=== PATIENT | female | born 1965 | race Caucasian/White ===

== ENCOUNTER 2018-05-13 12:57 | Inpatient (IN) | payer OTHER, SELFPAY ==
[2018-05-13] VITALS (16 sets, daily range): BP systolic 110–149; BP diastolic 62–98; PULSE 63–96; RESP 10–18; TEMP 36–36.8; O2SAT 16–100; BMI 21.8
--- NOTE | 2018-05-13 14:02 | ED.SKABFB ---
HPI - Skin/Abscess/Foreign Bdy General Chief complaint: Extremity Injury, Upper Stated complaint: INFECTED FINGER LT/INDEX FINGER Time Seen by Provider: 05/13/18 13:56 Related Data Allergies Allergy/AdvReac Type Severity Reaction Status Date / Time No Known Drug Allergies Allergy Verified 05/13/18 13:04 Exam Initial Vital Signs Initial Vital Signs: Vital Signs Temperature 98.0 F 05/13/18 13:04 Pulse Rate 84 05/13/18 13:04 Respiratory Rate 16 05/13/18 13:04 Blood Pressure 121/72 05/13/18 13:04 Pulse Oximetry 100 05/13/18 13:04 Course Vital Signs - 8 hr 05/13/18 13:04 Temperature 98.0 F Pulse Rate 84 Respiratory Rate 16 Blood Pressure 121/72 Pulse Oximetry 100
--- NOTE | 2018-05-13 14:12 | DI.RAD.S_ITS ---
PROCEDURE: XR FINGER LT MIN 2V INDICATIONS: 2weeks infection, osteo? distal phalanx, index TECHNIQUE: AP hand, 2 views of the left 2nd finger(s) acquired. COMPARISON: None. FINDINGS: Bones: No fractures or dislocations. There is mild irregularity of the cortex of the distal tuft of the 2nd digit. Soft tissues: No suspicious soft tissue calcifications. IMPRESSION: Mild cortical regularity involving the 2nd digit, which could represent osteomyelitis. Bone scan or MRI could be performed for confirmation, if clinically indicated. Dictated by: Blossom Alvarado M.D. on 05/13/2018 at 14:27 Approved by: Blossom Alvarado M.D. on 05/13/2018 at 14:28
--- NOTE | 2018-05-13 14:14 | ED.UPPEXIN ---
HPI - Extremity Injury (Upper) General Chief Complaint: Extremity Injury, Upper Stated Complaint: INFECTED FINGER LT/INDEX FINGER Time Seen by Provider: 05/13/18 13:56 Source: patient Mode of arrival: ambulatory Limitations: no limitations History of Present Illness HPI narrative: 52-year-old female nonsmoker with the rather benign medical history presents at the request of her primary care provider for evaluation of an infected left index finger. The patient has had a rather complex recent history which started with a laceration on April 26. Her wound was promptly dressed by some friends at a dinner alliance party and wrapped tightly. The patient developed some discomfort in her finger which she assumed was just a consequence of the laceration but it went on to become quite painful, insensate and black. Patient was initially seen by her primary care provider but then referred to the emergency department at [facility]. The patient was referred to plastic surgeon in [place] who has seen the patient a few times and most recently debridement, evaluated the finger yesterday. The patient complains of no sensation to the tip of her finger ongoing drainage of foul-smelling purulent fluid. She denies any systemic findings such as fever, chills nor nausea or vomiting MD complaint: injury to: left Onset (ago): day(s) Other Extremity Injury: Left: fingers Handedness: right Place: home Related Data Home Medications Medication Instructions Recorded Confirmed metronidazole 500 mg PO TID 05/13/18 05/13/18 sulfamethoxazole-trimethoprim 1 tab PO Q12H 05/13/18 05/13/18 Allergies Allergy/AdvReac Type Severity Reaction Status Date / Time No Known Drug Allergies Allergy Verified 05/13/18 13:04 Review of Systems Review of Systems ROS Unobtainable: All systems reviewed & are unremarkable except as noted in HPI and below Constitutional Denies chills, Denies fever(s), Denies lethargy and Denies weakness Eyes Denies change in vision, Denies eye discharge, Denies irritation and Denies loss of vision ENT Ears, Nose, Mouth, and Throat: Denies change in voice, Denies neck pain and Denies sore throat Cardiovascular Denies chest pain, Denies irregular heart rhythm, Denies lightheadedness, Denies palpitations, Denies dyspnea, Denies dyspnea on exertion and Denies orthopnea Respiratory Denies cough, Denies dyspnea, Denies dyspnea on exertion and Denies wheezing Gastrointestinal Gastrointestinal: Denies abdominal pain, Denies change in bowel habits, Denies diarrhea, Denies nausea and Denies vomiting Genitourinary Denies hematuria, Denies flank pain, Denies urinary incontinence and Denies urinary urgency Musculoskeletal Reports joint swelling, Reports limited range of motion and Denies neck pain Integumentary/Breasts Denies pruritus, Denies erythema, Denies rash, Reports skin pain, Reports skin swelling, Reports skin ulcer and Denies wounds Neurologic Denies confusion, Denies loss of vision and Denies weakness Psychiatric Denies anxiety, Denies confusion, Denies depression, Denies homicidal ideation and Denies suicidal ideation Endocrine Denies palpitations Hematologic/Lymphatic Denies easy bruising Allergic/Immunologic Denies wheezing [facility] Social History household members: spouse and children Exam Narrative Exam Narrative: GEN: AOx3 and in mild distress EYES: Pupils are equal, round, and reactive to light and accommodation. Extraoccular muscles are intact bilaterally. There is no subconjunctival hemorrhage or exudate. CHEST: Lungs are clear to auscultation bilaterally and free of wheezes, rales, or rhonchi. Heart rate is regular rhythm, there are no murmurs, clicks, rubs, or gallops. There is no chest wall tenderness. ABD: Abdomen is soft and nontender. There is no guarding or rebound. Bowel sounds are normal in all 4 quadrants. There is no mass or organomegaly. EXT: Left index finger with significant physical exam findings distal to the DIP. The skin is necrotic with some erythema and edema. There is ulceration and sloughing of the skin with some drainage. There is no active bleeding in it is insensate with little to no cap refill. There is minimal swelling of the remainder of the finger and no tenderness along flexor tendon SKIN: Warm, pink, and dry. No erythema or rash Initial Vital Signs Initial Vital Signs: Vital Signs Temperature 98.0 F 05/13/18 13:04 Pulse Rate 84 05/13/18 13:04 Respiratory Rate 16 05/13/18 13:04 Blood Pressure 121/72 05/13/18 13:04 Pulse Oximetry 100 05/13/18 13:04 Course Orders Ordered: ED Orders 05/13/18 14:12 XR finger LT min 2V Stat 05/13/18 14:15 Wound Culture and Gram Stain Stat 05/13/18 15:00 Basic Metabolic Panel Stat C-Reactive Protein Quant Stat Complete Blood Count AUTO DIFF Stat Erythrocyte Sedimentation Rate Stat 05/13/18 15:18 MR hand LT wo/w con Stat 05/13/18 19:12 Wound Culture and Gram Stain Routine 05/13/18 19:52 Consult to Discharge Planning Routine Consult to Physical Therapy Evaluate & Treat Consult to Respiratory Therapy Evaluate & Treat 05/14/18 05:00 Complete Blood Count NO DIFF Routine Acetaminophen (Tylenol) 650 mg PO Q6HR PRN PRN Reason: As Needed for Fever/Mild Pain Hydrocodone Bitart/Acetaminophen ([place] 5/325) 1 tab PO Q4HR PRN PRN Reason: Pain, Mild (1-3) Hydrocodone Bitart/Acetaminophen ([place] 5/325) 2 tab PO Q4HR PRN PRN Reason: Pain, Moderate (4-6) Al Hydrox/Mg Hydrox/Simethicone (Maalox Plus) 30 ml PO QID PRN PRN Reason: Dyspepsia Docusate Sodium (Colace) 100 mg PO BID KIMBERLY Hydromorphone HCl (Dilaudid) 0.2 mg IV Q1HR PRN PRN Reason: Pain, Mild (1-3) Hydromorphone HCl (Dilaudid) 0.5 mg IV Q1HR PRN PRN Reason: Pain, Moderate (4-6) Lactated Ringer's (Lactated Ringers) 1,000 mls @ 125 mls/hr IV CONT KIMBERLY Ceftriaxone Sodium/Dextrose (Rocephin) 1 gm in 50 mls @ 100 mls/hr IV Q12H KIMBERLY Lorazepam (Ativan) 0.5 mg PO Q6HR PRN PRN Reason: Anxiety Metoclopramide HCl (Reglan) 10 mg IV Q6HR PRN PRN Reason: Nausea And Vomiting Naloxone HCl (Narcan) 0.2 mg IV Q2MIN PRN PRN Reason: Opiate Reversal Ondansetron HCl (Zofran) 4 mg IV Q4HR PRN PRN Reason: Nausea And Vomiting Discontinued Medications Acetaminophen (Tylenol) 650 mg PO NOW ONE Stop: 05/13/18 19:06 Last Admin: 05/13/18 19:05 Dose: 650 mg Hydrocodone Bitart/Acetaminophen ([place] 5/325) 1 tab PO Q30MIN PRN PRN Reason: Mild or moderate pain Bupivacaine HCl (Sensorcaine 0.5% (Pf)) 30 ml INJ NOW ONE Stop: 05/13/18 18:49 Last Admin: 05/13/18 18:48 Dose: 5 ml Fentanyl (Sublimaze) 50 mcg IV Q5MIN PRN PRN Reason: Pain, Moderate (4-6) Hydromorphone HCl (Dilaudid) 0.5 mg IV Q5MIN PRN PRN Reason: Pain, Moderate (4-6) Ceftriaxone Sodium/Dextrose (Rocephin) 1 gm in 50 mls @ 100 mls/hr IV NOW ONE Stop: 05/13/18 15:48 Last Infusion: 05/13/18 17:06 Dose: 0 mls/hr Admin: 05/13/18 15:39 Dose: 100 mls/hr Lactated Ringer's (Lactated Ringers) 1,000 mls @ 42 mls/hr IV CONT KIMBERLY Last Infusion: 05/13/18 19:31 Dose: 0 mls/hr Admin: 05/13/18 18:00 Dose: 42 mls/hr Cefazolin Sodium/Dextrose (Ancef) 1 gm in 50 mls @ 100 mls/hr IV NOW ONE Stop: 05/13/18 18:59 Last Infusion: 05/13/18 18:40 Dose: 0 mls/hr Admin: 05/13/18 18:34 Dose: 100 mls/hr Ceftriaxone Sodium/Dextrose (Rocephin) 1 gm in 50 mls @ 100 mls/hr IV Q12H [facility] Meperidine HCl (Demerol) 25 mg IV Q5MIN PRN PRN Reason: Pain or shivering Metoclopramide HCl (Reglan) 10 mg IV NOW PRN PRN Reason: Nausea And Vomiting Ondansetron HCl (Zofran) 4 mg IV NOW PRN PRN Reason: Nausea And Vomiting Oxycodone/Acetaminophen (Percocet 5/325) 1 tab PO Q30MIN PRN PRN Reason: Mild or moderate pain Consultations Consultation #1: Dr. nolen has evaluated the patient at the bedside and has requested we order an MRI prior to taking the patient to the operating room Vital Signs - 8 hr 05/13/18 13:04 05/13/18 17:09 05/13/18 17:46 Temperature 98.0 F 98.2 F Pulse Rate 84 96 H 77 Respiratory Rate 16 15 Blood Pressure 121/72 117/83 Blood Pressure [Right Arm] 111/94 H Pulse Oximetry 100 100 16 L 05/13/18 18:57 05/13/18 19:02 05/13/18 19:07 Temperature 97.0 F L Pulse Rate 89 84 66 Respiratory Rate 18 11 L 13 Blood Pressure 140/95 H 138/98 H 143/98 H Blood Pressure [Right Arm] Pulse Oximetry 98 99 100 05/13/18 19:13 05/13/18 19:18 05/13/18 19:23 Temperature 96.8 F L 97.1 F L Pulse Rate 74 76 63 Respiratory Rate 14 18 10 L Blood Pressure 144/97 H 143/92 H 147/91 H Blood Pressure [Right Arm] Pulse Oximetry 100 100 99 05/13/18 19:28 Temperature Pulse Rate 64 Respiratory Rate 12 Blood Pressure 141/96 H Blood Pressure [Right Arm] Pulse Oximetry 99 MDM - Extremity Injury (Upper) Lab Data Result diagrams: 05/13/18 15:00 05/13/18 15:00 Lab Results 05/13/18 05/13/18 Range/Units 15:00 15:00 WBC 5.4 (4.5-11.0) X10^3/uL RBC 4.96 (4.0-5.2) X10^6/uL Hgb 14.8 (12.0-16.0) g/dL Hct 44.7 (36-46) % MCV 90.2 (80-100) fL MCH 29.8 (26-34) PG MCHC 33.0 (30-36) % RDW 12.6 (11.6-14.8) % Plt Count 261 (150-400) X10^3/uL Neut % (Auto) 53.3 (50-75) % Lymph % (Auto) 33.3 (25-40) % [place] % (Auto) 7.1 (3-14) % Eos % (Auto) 4.7 H (2-4) % Baso % (Auto) 1.6 (0-2) % Neut # (Auto) 2900 (7406-1260) /uL Lymph # (Auto) 1800 (7060-0938) /uL [place] # (Auto) 400 (0-900) /uL Eos # (Auto) 300 (0-450) /uL Baso # (Auto) 100 (0-100) /uL ESR 4 (0-20) MM/HR Sodium 139 (137-145) mmol/L Potassium 4.0 (3.4-5.1) mmol/L Chloride 102 (98-107) mmol/L Carbon Dioxide 28 (22-32) mmol/L BUN 9 (7-17) mg/dL Creatinine 0.50 L (0.52-1.04) mg/dL Estimated GFR > 60.0 (>60) mL/min BUN/Creatinine Ratio 18.0 (6-22) Glucose 103 H (70-100) mg/dL Calcium 9.8 (8.4-10.2) mg/dL C-Reactive Protein < 0.5 (<1.0) mg/dL Imaging Data Finger Xray: Radiologist's impression: [address] [address] XRay Report Signed Patient: Uzma GuerraMR#: [id number] : 1965Acct:[id number] Age/Sex: 52 / FDate of Service: 05/13/18 Loc: ED Accession Number: [id number] Procedure: XR finger LT min 2V Ordering Provider: Sharad Vallejo D.O. PROCEDURE: XR FINGER LT MIN 2V INDICATIONS: 2weeks infection, osteo? distal phalanx, index TECHNIQUE: AP hand, 2 views of the left 2nd finger(s) acquired. COMPARISON: None. FINDINGS: Bones: No fractures or dislocations. There is mild irregularity of the cortex of the distal tuft of the 2nd digit. Soft tissues: No suspicious soft tissue calcifications. IMPRESSION: Mild cortical regularity involving the 2nd digit, which could represent osteomyelitis. Bone scan or MRI could be performed for confirmation, if clinically indicated. Dictated by: Blossom Alvarado M.D. on 05/13/2018 at 14:27 MRI Hand: Radiologist's impression: Uzma Guerra 52 F [address] [address] Magnetic Resonance Report Signed Patient: Uzma Guerra#: [id number] : 1965Acct:[id number] Age/Sex: 52 / FDate of Service: 05/13/18 Loc: LW02C-4 Accession Number: [id number] Procedure: MR hand LT wo/w con Ordering Provider: Sharad Vallejo D.O. PROCEDURE: MR HAND LT WO/W CON INDICATIONS: necrotic distal finger, abscess? osteo? TECHNIQUE: Noncontrast coronal T1 spin echo and STIR, sagittal T1 spin echo with fat saturation and STIR, axial T1 spin echo and T2 fast spin echo with fat saturation. After the administration of contrast, axial/sagittal/coronal T1 spin echo with fat saturation through the left hand. COMPARISON: [facility], CR, XR FINGER LT MIN 2V, 05/13/2018, 14:13. FINDINGS: Image quality: Diagnostic. Bones: The visualized bone marrow demonstrates normal overall signal. There is focal cortical erosion involving the radial dorsal aspect of the 2nd distal phalanx with associated mild T2 hyperintensity and enhancement of the adjacent marrow. Findings are consistent with osteomyelitis. Remaining visualized osseous structures demonstrate no other areas of suspected osteomyelitis. No fractures or bone contusions. No joint effusions. Soft tissues: There is diffuse soft tissue edema and enhancement involving the 2nd digit most prominent distally. A small soft tissue ulcer is demonstrated in the distal 2nd digit involving the volar radial aspect. This measures up to approximately 0.8 x 0.6 cm and extends to the underlying distal phalanx. There is enhancement along the margins of a subjacent tract. Elsewhere, no discrete abscess collection identified. There is peritendinous edema and enhancement along the flexor tendons of the 3rd digit consistent peritendinitis without tenosynovial fluid. The flexor and extensor tendons appear intact. The visualized musculature within the hand and remaining digits demonstrate preserve signal and bulk. IMPRESSION: 1. Soft tissue ulcer in the distal 2nd digit with a subjacent tract extending to the underlying distal phalanx which demonstrates findings consistent with osteomyelitis. 2. Diffuse soft tissue edema, swelling, and enhancement of the 2nd digit most prominent distally consistent with cellulitis. No discrete abscess identified. 3. Peritendinitis along the flexor tendons of the 2nd digit without tenosynovial fluid collection. Dictated by: Adam Cobb M.D. on 05/13/2018 at 17:18 Approved by: Adam Cobb M.D. on 05/13/2018 at 17:28 Discharge Plan Departure Patient Disposition: Admitted as Observation Clinical Impression: Necrotic wound of left hand Qualifiers: Encounter type: initial encounter Qualified Code(s): S61.402A - Unspecified open wound of left hand, initial encounter Discharge Date/Time: 05/13/18 17:37 Interventions: ED Discharge Assessment Last Done: 05/13/18 17:32 Admit Date/Time: 05/13/18 17:25 Admit Provider: Jeffry Mascorro
--- NOTE | 2018-05-13 14:37 | ED_ITS ---
HPI - Extremity Injury (Upper) General Chief Complaint: Extremity Injury, Upper Stated Complaint: INFECTED FINGER LT/INDEX FINGER Time Seen by Provider: 05/13/18 13:56 Source: patient Mode of arrival: ambulatory Limitations: no limitations History of Present Illness HPI narrative: 52-year-old female nonsmoker with the rather benign medical history presents at the request of her primary care provider for evaluation of an infected left index finger. The patient has had a rather complex recent history which started with a laceration on April 26. Her wound was promptly dressed by some friends at a dinner constitution party and wrapped tightly. The patient developed some discomfort in her finger which she assumed was just a consequence of the laceration but it went on to become quite painful, insensate and black. Patient was initially seen by her primary care provider but then referred to the emergency department at [facility]. The patient was referred to plastic surgeon in [place] who has seen the patient a few times and most recently debridement, evaluated the finger yesterday. The patient complains of no sensation to the tip of her finger ongoing drainage of foul-smelling purulent fluid. She denies any systemic findings such as fever, chills nor nausea or vomiting MD complaint: injury to: left Onset (ago): day(s) Other Extremity Injury: Left: fingers Handedness: right Place: home Related Data Home Medications Medication Instructions Recorded Confirmed metronidazole 500 mg PO TID 05/13/18 05/13/18 sulfamethoxazole-trimethoprim 1 tab PO Q12H 05/13/18 05/13/18 Allergies Allergy/AdvReac Type Severity Reaction Status Date / Time No Known Drug Allergies Allergy Verified 05/13/18 13:04 Review of Systems Review of Systems ROS Unobtainable: All systems reviewed & are unremarkable except as noted in HPI and below Constitutional Denies chills, Denies fever(s), Denies lethargy and Denies weakness Eyes Denies change in vision, Denies eye discharge, Denies irritation and Denies loss of vision ENT Ears, Nose, Mouth, and Throat: Denies change in voice, Denies neck pain and Denies sore throat Cardiovascular Denies chest pain, Denies irregular heart rhythm, Denies lightheadedness, Denies palpitations, Denies dyspnea, Denies dyspnea on exertion and Denies orthopnea Respiratory Denies cough, Denies dyspnea, Denies dyspnea on exertion and Denies wheezing Gastrointestinal Gastrointestinal: Denies abdominal pain, Denies change in bowel habits, Denies diarrhea, Denies nausea and Denies vomiting Genitourinary Denies hematuria, Denies flank pain, Denies urinary incontinence and Denies u rinary urgency Musculoskeletal Reports joint swelling, Reports limited range of motion and Denies neck pain Integumentary/Breasts Denies pruritus, Denies erythema, Denies rash, Reports skin pain, Reports skin swelling, Reports skin ulcer and Denies wounds Neurologic Denies confusion, Denies loss of vision and Denies weakness Psychiatric Denies anxiety, Denies confusion, Denies depression, Denies homicidal ideation and Denies suicidal ideation Endocrine Denies palpitations Hematologic/Lymphatic Denies easy bruising Allergic/Immunologic Denies wheezing [facility] Social History household members: spouse and children Exam Narrative Exam Narrative: GEN: AOx3 and in mild distress EYES: Pupils are equal, round, and reactive to light and accommodation. Extraoccular muscles are intact bilaterally. There is no subconjunctival hemorrhage or exudate. CHEST: Lungs are clear to auscultation bilaterally and free of wheezes, rales, or rhonchi. Heart rate is regular rhythm, there are no murmurs, clicks, rubs, or gallops. There is no chest wall tenderness. ABD: Abdomen is soft and nontender. There is no guarding or rebound. Bowel sounds are normal in all 4 quadrants. There is no mass or organomegaly. EXT: Left index finger with significant physical exam findings distal to the DIP. The skin is necrotic with some erythema and edema. There is ulceration and sloughing of the skin with some drainage. There is no active bleeding in it is insensate with little to no cap refill. There is minimal swelling of the remainder of the finger and no tenderness along flexor tendon SKIN: Warm, pink, and dry. No erythema or rash Initial Vital Signs Initial Vital Signs: Vital Signs Temperature 98.0 F 05/13/18 13:04 Pulse Rate 84 05/13/18 13:04 Respiratory Rate 16 05/13/18 13:04 Blood Pressure 121/72 05/13/18 13:04 Pulse Oximetry 100 05/13/18 13:04 Course Orders Ordered: ED Orders 05/13/18 14:12 XR finger LT min 2V Stat 05/13/18 14:15 Wound Culture and Gram Stain Stat 05/13/18 15:00 Basic Metabolic Panel Stat C-Reactive Protein Quant Stat Complete Blood Count AUTO DIFF Stat Erythrocyte Sedimentation Rate Stat 05/13/18 15:18 MR hand LT wo/w con Stat 05/13/18 19:12 Wound Culture and Gram Stain Routine 05/13/18 19:52 Consult to Discharge Planning Routine Consult to Physical Therapy Evaluate & Treat Consult to Respiratory Therapy Evaluate & Treat 05/14/18 05:00 Complete Blood Count NO DIFF Routine Acetaminophen (Tylenol) 650 mg PO Q6HR PRN PRN Reason: As Needed for Fever/Mild Pain Hydrocodone Bitart/Acetaminophen ([place] 5/325) 1 tab PO Q4HR PRN PRN Reason: Pain, Mild (1-3) Hydrocodone Bitart/Acetaminophen ([place] 5/325) 2 tab PO Q4HR PRN PRN Reason: Pain, Moderate (4-6) Al Hydrox/Mg Hydrox/Simethicone (Maalox Plus) 30 ml PO QID PRN PRN Reason: Dyspepsia Docusate Sodium (Colace) 100 mg PO BID KIMBERLY Hydromorphone HCl (Dilaudid) 0.2 mg IV Q1HR PRN PRN Reason: Pain, Mild (1-3) Hydromorphone HCl (Dilaudid) 0.5 mg IV Q1HR PRN PRN Reason: Pain, Moderate (4-6) Lactated Ringer's (Lactated Ringers) 1,000 mls @ 125 mls/hr IV CONT KIMBERLY Ceftriaxone Sodium/Dextrose (Rocephin) 1 gm in 50 mls @ 100 mls/hr IV Q12H KIMBERLY Lorazepam (Ativan) 0.5 mg PO Q6HR PRN PRN Reason: Anxiety Metoclopramide HCl (Reglan) 10 mg IV Q6HR PRN PRN Reason: Nausea And Vomiting Naloxone HCl (Narcan) 0.2 mg IV Q2MIN PRN PRN Reason: Opiate Reversal Ondansetron HCl (Zofran) 4 mg IV Q4HR PRN PRN Reason: Nausea And Vomiting Discontinued Medications Acetaminophen (Tylenol) 650 mg PO NOW ONE Stop: 05/13/18 19:06 Last Admin: 05/13/18 19:05 Dose: 650 mg Hydrocodone Bitart/Acetaminophen ([place] 5/325) 1 tab PO Q30MIN PRN PRN Reason: Mild or moderate pain Bupivacaine HCl (Sensorcaine 0.5% (Pf)) 30 ml INJ NOW ONE Stop: 05/13/18 18:49 Last Admin: 05/13/18 18:48 Dose: 5 ml Fentanyl (Sublimaze) 50 mcg IV Q5MIN PRN PRN Reason: Pain, Moderate (4-6) Hydromorphone HCl (Dilaudid) 0.5 mg IV Q5MIN PRN PRN Reason: Pain, Moderate (4-6) Ceftriaxone Sodium/Dextrose (Rocephin) 1 gm in 50 mls @ 100 mls/hr IV NOW ONE Stop: 05/13/18 15:48 Last Infusion: 05/13/18 17:06 Dose: 0 mls/hr Admin: 05/13/18 15:39 Dose: 100 mls/hr Lactated Ringer's (Lactated Ringers) 1,000 mls @ 42 mls/hr IV CONT KIMBERLY Last Infusion: 05/13/18 19:31 Dose: 0 mls/hr Admin: 05/13/18 18:00 Dose: 42 mls/hr Cefazolin Sodium/Dextrose (Ancef) 1 gm in 50 mls @ 100 mls/hr IV NOW ONE Stop: 05/13/18 18:59 Last Infusion: 05/13/18 18:40 Dose: 0 mls/hr Admin: 05/13/18 18:34 Dose: 100 mls/hr Ceftriaxone Sodium/Dextrose (Rocephin) 1 gm in 50 mls @ 100 mls/hr IV Q12H [facility] Meperidine HCl (Demerol) 25 mg IV Q5MIN PRN PRN Reason: Pain or shivering Metoclopramide HCl (Reglan) 10 mg IV NOW PRN PRN Reason: Nausea And Vomiting Ondansetron HCl (Zofran) 4 mg IV NOW PRN PRN Reason: Nausea And Vomiting Oxycodone/Acetaminophen (Percocet 5/325) 1 tab PO Q30MIN PRN PRN Reason: Mild or moderate pain Consultations Consultation #1: Dr. nolen has evaluated the patient at the bedside and has requested we order an MRI prior to taking the patient to the operating room Vital Signs - 8 hr 05/13/18 13:04 05/13/18 17:09 05/13/18 17:46 Temperature 98.0 F 98.2 F Pulse Rate 84 96 H 77 Respiratory Rate 16 15 Blood Pressure 121/72 117/83 Blood Pressure [Right Arm] 111/94 H Pulse Oximetry 100 100 16 L 05/13/18 18:57 05/13/18 19:02 05/13/18 19:07 Temperature 97.0 F L Pulse Rate 89 84 66 Respiratory Rate 18 11 L 13 Blood Pressure 140/95 H 138/98 H 143/98 H Blood Pressure [Right Arm] Pulse Oximetry 98 99 100 05/13/18 19:13 05/13/18 19:18 05/13/18 19:23 Temperature 96.8 F L 97.1 F L Pulse Rate 74 76 63 Respiratory Rate 14 18 10 L Blood Pressure 144/97 H 143/92 H 147/91 H Blood Pressure [Right Arm] Pulse Oximetry 100 100 99 05/13/18 19:28 Temperature Pulse Rate 64 Respiratory Rate 12 Blood Pressure 141/96 H Blood Pressure [Right Arm] Pulse Oximetry 99 MDM - Extremity Injury (Upper) Lab Data Result diagrams: 05/13/18 15:00 05/13/18 15:00 Lab Results 05/13/18 05/13/18 Range/Units 15:00 15:00 WBC 5.4 (4.5-11.0) X10^3/uL RBC 4.96 (4.0-5.2) X10^6/uL Hgb 14.8 (12.0-16.0) g/dL Hct 44.7 (36-46) % MCV 90.2 (80-100) fL MCH 29.8 (26-34) PG MCHC 33.0 (30-36) % RDW 12.6 (11.6-14.8) % Plt Count 261 (150-400) X10^3/uL Neut % (Auto) 53.3 (50-75) % Lymph % (Auto) 33.3 (25-40) % [place] % (Auto) 7.1 (3-14) % Eos % (Auto) 4.7 H (2-4) % Baso % (Auto) 1.6 (0-2) % Neut # (Auto) 2900 (6914-6521) /uL Lymph # (Auto) 1800 (9157-7767) /uL [place] # (Auto) 400 (0-900) /uL Eos # (Auto) 300 (0-450) /uL Baso # (Auto) 100 (0-100) /uL ESR 4 (0-20) MM/HR Sodium 139 (137-145) mmol/L Potassium 4.0 (3.4-5.1) mmol/L Chloride 102 (98-107) mmol/L Carbon Dioxide 28 (22-32) mmol/L BUN 9 (7-17) mg/dL Creatinine 0.50 L (0.52-1.04) mg/dL Estimated GFR > 60.0 (>60) mL/min BUN/Creatinine Ratio 18.0 (6-22) Glucose 103 H (70-100) mg/dL Calcium 9.8 (8.4-10.2) mg/dL C-Reactive Protein < 0.5 (<1.0) mg/dL Imaging Data Finger Xray: Radiologist's impression: [address] [address] XRay Report Signed Patient: Uzma GuerraMR#: [id number] : 1965Acct:[id number] Age/Sex: 52 / FDate of Service: 05/13/18 Loc: ED Accession Number: [id number] Procedure: XR finger LT min 2V Ordering Provider: Sharad Vallejo D.O. PROCEDURE: XR FINGER LT MIN 2V INDICATIONS: 2weeks infection, osteo? distal phalanx, index TECHNIQUE: AP hand, 2 views of the left 2nd finger(s) acquired. COMPARISON: None. FINDINGS: Bones: No fractures or dislocations. There is mild irregularity of the cortex of the distal tuft of the 2nd digit. Soft tissues: No suspicious soft tissue calcifications. IMPRESSION: Mild cortical regularity involving the 2nd digit, which could represent osteomyelitis. Bone scan or MRI could be performed for confirmation, if clinically indicated. Dictated by: Blossom Alvarado M.D. on 05/13/2018 at 14:27 MRI Hand: Radiologist's impression: Uzma Guerra 52 F [address] [address] Magnetic Resonance Report Signed Patient: Uzma GuerraMR#: [id number] : 1965Acct:[id number] Age/Sex: 52 / FDate of Service: 05/13/18 Loc: UT37W-9 Accession Number: [id number] Procedure: MR hand LT wo/w con Ordering Provider: Sharad Vallejo D.O. PROCEDURE: MR HAND LT WO/W CON INDICATIONS: necrotic distal finger, abscess? osteo? TECHNIQUE: Noncontrast coronal T1 spin echo and STIR, sagittal T1 spin echo with fat saturation and STIR, axial T1 spin echo and T2 fast spin echo with fat saturation. After the administration of contrast, axial/sagittal/coronal T1 spin echo with fat saturation through the left hand. COMPARISON: [facility], CR, XR FINGER LT MIN 2V, 05/13/2018, 14:13. FINDINGS: Image quality: Diagnostic. Bones: The visualized bone marrow demonstrates normal overall signal. There is focal cortical erosion involving the radial dorsal aspect of the 2nd distal phalanx with associated mild T2 hyperintensity and enhancement of the adjacent marrow. Findings are consistent with osteomyelitis. Remaining visualized osseous structures demonstrate no other areas of suspected osteomyelitis. No fractures or bone contusions. No joint effusions. Soft tissues: There is diffuse soft tissue edema and enhancement involving the 2nd digit most prominent distally. A small soft tissue ulcer is demonstrated in the distal 2nd digit involving the volar radial aspect. This measures up to approximately 0.8 x 0.6 cm and extends to the underlying distal phalanx. There is enhancement along the margins of a subjacent tract. Elsewhere, no discrete abscess collection identified. There is peritendinous edema and enhancement along the flexor tendons of the 3rd digit consistent peritendinitis without tenosynovial fluid. The flexor and extensor tendons appear intact. The visualized musculature within the hand and remaining digits demonstrate preserve signal and bulk. IMPRESSION: 1. Soft tissue ulcer in the distal 2nd digit with a subjacent tract extending to the underlying distal phalanx which demonstrates findings consistent with osteomyelitis. 2. Diffuse soft tissue edema, swelling, and enhancement of the 2nd digit most prominent distally consistent with cellulitis. No discrete abscess identified. 3. Peritendinitis along the flexor tendons of the 2nd digit without ten osynovial fluid collection. Dictated by: Adam Cobb M.D. on 05/13/2018 at 17:18 Approved by: Adam Cobb M.D. on 05/13/2018 at 17:28 Discharge Plan Departure Patient Disposition: Admitted as Observation Clinical Impression: Necrotic wound of left hand Qualifiers: Encounter type: initial encounter Qualified Code(s): S61.402A - Unspecified open wound of left hand, initial encounter Discharge Date/Time: 05/13/18 17:37 Interventions: ED Discharge Assessment Last Done: 05/13/18 17:32 Admit Date/Time: 05/13/18 17:25 Admit Provider: Jeffry Mascorro
[2018-05-13 15:12] LABS: Add Manual Diff / Slide Review NO; Basophils Absolute Auto 100 /uL (0-100); Basophils Percent Auto 1.6 % (0-2); Eosinophils Absolute Auto 300 /uL (0-450); Eosinophils Percent Auto 4.7 % (2-4); Hematocrit 44.7 % (36-46); Hemoglobin 14.8 g/dL (12.0-16.0); Lymphocytes Absolute Auto 1800 /uL (1100-4500); Lymphocytes Percent Auto 33.3 % (25-40); Mean Corpuscular Hemoglobin 29.8 PG (26-34); Mean Corpuscular Volume 90.2 fL (80-100); Monocytes Absolute Auto 400 /uL (0-900); Monocytes Percent Auto 7.1 % (3-14); Neutrophils Absolute Auto 2900 /uL (1500-7000); Neutrophils Percent Auto 53.3 % (50-75); Platelet Count 261 X10^3/uL (150-400); Red Blood Cell Count 4.96 X10^6/uL (4.0-5.2); Red Cell Distribution Width 12.6 % (11.6-14.8); White Blood Cell Count 5.4 X10^3/uL (4.5-11.0)
--- NOTE | 2018-05-13 15:18 | DI.MRI.S_ITS ---
PROCEDURE: MR HAND LT WO/W CON INDICATIONS: necrotic distal finger, abscess? osteo? TECHNIQUE: Noncontrast coronal T1 spin echo and STIR, sagittal T1 spin echo with fat saturation and STIR, axial T1 spin echo and T2 fast spin echo with fat saturation. After the administration of contrast, axial/sagittal/coronal T1 spin echo with fat saturation through the left hand. COMPARISON: [facility], CR, XR FINGER LT MIN 2V, 05/13/2018, 14:13. FINDINGS: Image quality: Diagnostic. Bones: The visualized bone marrow demonstrates normal overall signal. There is focal cortical erosion involving the radial dorsal aspect of the 2nd distal phalanx with associated mild T2 hyperintensity and enhancement of the adjacent marrow. Findings are consistent with osteomyelitis. Remaining visualized osseous structures demonstrate no other areas of suspected osteomyelitis. No fractures or bone contusions. No joint effusions. Soft tissues: There is diffuse soft tissue edema and enhancement involving the 2nd digit most prominent distally. A small soft tissue ulcer is demonstrated in the distal 2nd digit involving the volar radial aspect. This measures up to approximately 0.8 x 0.6 cm and extends to the underlying distal phalanx. There is enhancement along the margins of a subjacent tract. Elsewhere, no discrete abscess collection identified. There is peritendinous edema and enhancement along the flexor tendons of the 3rd digit consistent peritendinitis without tenosynovial fluid. The flexor and extensor tendons appear intact. The visualized musculature within the hand and remaining digits demonstrate preserve signal and bulk. IMPRESSION: 1. Soft tissue ulcer in the distal 2nd digit with a subjacent tract extending to the underlying distal phalanx which demonstrates findings consistent with osteomyelitis. 2. Diffuse soft tissue edema, swelling, and enhancement of the 2nd digit most prominent distally consistent with cellulitis. No discrete abscess identified. 3. Peritendinitis along the flexor tendons of the 2nd digit without tenosynovial fluid collection. Dictated by: Adam Cobb M.D. on 05/13/2018 at 17:18 Approved by: Adam Cobb M.D. on 05/13/2018 at 17:28
[2018-05-13 15:28] LABS: Blood Urea Nitrogen 9 mg/dL (7-17); Calcium 9.8 mg/dL (8.4-10.2); Carbon Dioxide 28 mmol/L (22-32); Chloride 102 mmol/L (98-107); Estimated Glomerular Filt Rate > 60.0 mL/min (>60); Glucose 103 mg/dL (70-100); Sodium 139 mmol/L (137-145)
[2018-05-13 15:29] LABS: C-Reactive Protein Quant < 0.5 mg/dL (<1.0); HEMOLYSIS 72 (0-50)
[2018-05-13 15:30] LABS: Erythrocyte Sedimentation Rate 4 MM/HR (0-20)
[2018-05-13] MEDS: CEFTRIAXONE 1 GM/50 ML FROZ.PIGGY IV (15:39)
--- NOTE | 2018-05-13 15:46 | P.CONS_ITS ---
History of Present Illness Date Patient Seen: 05/13/18 Time Patient Seen: 15:36 Chief complaint: INFECTED FINGER LT/INDEX FINGER Reason for consult: L index finger infection Requesting provider: Sharad Vallejo Narrative: 52-year-old [id number] female with a left index finger infection. She originally injured it with a kitchen knife accidentally on 04/26/2018. This was cleaned up at home and wrapped tightly with a bandage. It began hurting more and she went to the emergency room 2 days later. This started her on oral antibiotics and she was referred to a plastic surgeon, Dr. Pedraza, at [facility]. Evidently this was slightly debrided and she followed up again yesterday. Evidently he lanced 2 small blisters and changed her antibiotics to include Flagyl. She saw a friend of hers, Dr. Jeffry Blair, in clinic this morning who recommended this be seen in the emergency room. She reports that her finger has looked the same for several days. She has had persistent brown drainage from this. No fevers or chills. No proximal spread. No feeling in the finger tip. Meds Home Medications Medication Instructions Recorded Confirmed Type metronidazole 500 mg PO TID 05/13/18 05/13/18 History sulfamethoxazole-trimethoprim 1 tab PO Q12H 05/13/18 History Allergies Allergy/AdvReac Type Severity Reaction Status Date / Time No Known Drug Allergies Allergy Verified 05/13/18 13:04 Review of Systems Constitutional Constitutional: Denies chills, Denies fever(s) and Denies weakness Cardiovascular Cardiovascular: Denies chest pain Respiratory Respiratory: Denies cough Gastrointestinal Gastrointestinal: Denies nausea Neurologic Neurologic: Denies weakness Hematologic/Lymphatic Hematologic/Lymphatic: Denies easy bleeding Exam Vital Signs (past 8 hours): - 05/13/18 13:04 Temperature 98.0 F Pulse Rate 84 Respiratory Rate 16 Blood Pressure 121/72 Pulse Oximetry 100 Oxygen Delivery Method Room Air Const Orientation: alert and oriented x3 Resp Auscultation: clear to auscultation bilaterally Cardio Rate: regular rate Rhythm: regular rhythm Extrem Other: Left index finger has a 1.5 cm laceration on the radial side just proximal to the nail base. This has black eschar over it. All of the tissue distal to this on both sides is pale, black underneath, with no capillary refill. Pin prick just released a few drops of brown fluid. No sensation to the tip of the finger. This tracks approximately 8 mm proximal to the base of the nail before it turns red and ecchymotic. Clear demarcation with normal skin just at the DIP joint. Objective Imaging L index finger xray: My impression: Minimal cortical reaction along the tip of the index finger distal phalanx, but no overt signs of osteomyelitis. No free air or gas Labs Result Diagrams: 05/13/18 15:00 05/13/18 15:00 Labs: Laboratory Results - last 24 hr 05/13/18 05/13/18 15:00 15:00 WBC 5.4 RBC 4.96 Hgb 14.8 Hct 44.7 MCV 90.2 MCH 29.8 MCHC 33.0 RDW 12.6 Plt Count 261 Neut % (Auto) 53.3 Lymph % (Auto) 33.3 [place] % (Auto) 7.1 Eos % (Auto) 4.7 H Baso % (Auto) 1.6 Neut # (Auto) 2900 Lymph # (Auto) 1800 [place] # (Auto) 400 Eos # (Auto) 300 Baso # (Auto) 100 ESR 4 Sodium 139 Potassium 4.0 Chloride 102 Carbon Dioxide 28 BUN 9 Creatinine 0.50 L Estimated GFR > 60.0 BUN/Creatinine Ratio 18.0 Glucose 103 H Calcium 9.8 C-Reactive Protein < 0.5 Assessment & Plan Assessment & Plan narrative: Laceration of the left index finger. This is now necrotic on the tip with no evidence of any vascular supply. My recommendation is for irrigation and debridement and exploration. I have explained to the patient that I think this is most likely going to require a distal amputation and less we were able to clear it up and it rapidly restores blood flow, but I am quite doubtful. This does not look good. I will get an MRI with contrast prior to make sure there is no abscess that we're missing that may be cleaned up. Risks and benefits of surgery discussed including but not limited to medical r isk going under anesthetic, ongoing infection, bleeding, failure to save finger, pain, numbness, hypersensitivity, stiff finger, need for further surgery. She had lunch with her antibiotics and we will plan on going later this afternoon. I will plan on keeping her in the hospital least for 1-2 days of IV antibiotics.
[2018-05-13] MEDS: LACTATED RINGERS 1,000 ML 42 ML IV (18:00)
--- NOTE | 2018-05-13 18:05 | PM.PREOP ---
Pre-operative Note Interval Note History & Physical reviewed/Exam performed by Physician: Yes Changes to H&P: Yes H&P completed within 30 days and has changed as indicated here:: MRI shows early signs of osteomyelitis in the distal phalanx. No discrete abscess but there is soft tissue edema and spread proximally. Ulceration around the knife cut itself. She has osteomyelitis and some tissue necrosis with dry gangrene. We will proceed as planned with an irrigation debridement and exploration and possible distal phalanx amputation.
--- NOTE | 2018-05-13 18:07 | PM.OP.1 ---
Operative Date/Time/Diagnoses Date of procedure: 05/13/18 Time of procedure: 19:01 Pre-op diagnosis: Left index finger osteomyelitis Left index finger gangrene Post-op diagnosis: same Procedure & Clinicians Procedure: Irrigation debridement of left index finger distal phalanx including bone for osteomyelitis Same procedure as scheduled: Yes Indications: 52-year-old female with an infected gangrenous left index finger. It was felt that she would benefit from wound exploration debridement. She also understood that she may need an amputation as this appeared to be gangrenous tissue. Risks and benefits were discussed and appropriate consent obtained. Click Yes if Unassisted: Yes Anesthesia Type: General Operative Notes Closure Type: primary Estimated Blood Loss (mL): 10 Procedure in detail: Patient was brought to the operating room and intubated on the table. A time-out was performed. Antibiotics were held for cultures. Attention was turned to the well-marked left upper extremity. The left arm was prepped and draped in standard sterile fashion. We bluntly spread through the laceration and purulent material was underneath. This was cultured and sent to microbiology. Ancef was given after this. On doing this, the entire finger tip degloved including the entire nail, leaving the nail bed behind. There was approximately 4 mm of thick tissue that came off with the skin. I then sharply excised the eschar and necrotic tissue with a scalpel at the edge of the laceration. She had good bleeding tissue proximal to this. Distally there was a little bit of pink blood fill on the radial side. On the ulnar side, she had good capillary refill on the now exposed soft tissue. We continued with the incisional debridement. Curette was used to debride the edges of the bone as well as the soft tissue underneath reaching across to the opposite side. The wound was irrigated and I could not see any other purulent or necrotic appearing material. The wound was then copiously irrigated. At this point I thought that she still had another viable tissue distally but was slightly worried about soft tissue coverage over her laceration side. Using nylon suture, we were able to reapproximate the soft tissue edges to to come together and fully cover over the bone. 5 cc of 0.5% plain Marcaine were used for a digital nerve block before we finished. The wound was cleared off. A sterile dressing was placed and then she was extubated brought to recovery with no complication. Complications: none Condition: stable Disposition: PACU Plan for aftercare: Inpatient for IV antibiotics. Plan to take down her dressing in 2 days on morning for wound examination. Possible return to the operating room that day.
[2018-05-13] MEDS: CEFAZOLIN 1 GM/50 ML FROZ.PIGGY IV (18:34)
[2018-05-13] MEDS: BUPIVACAINE 0.5% (PF) VIAL 30 ML INJ (18:48)
[2018-05-13] MEDS: ACETAMINOPHEN 325 MG TABLET 650 MG PO (19:05)
--- NOTE | 2018-05-13 19:43 | SUR.PHASEI ---
PT TRANSFERED TO ACUTE CARE FLOOR IN STABLE CONDITION, VSS. BEDSIDE REPORT GIVEN TO MELI BROWN UPON ARRIVAL TO ROOM. PT FAMILY IN ROOM UPON ARRIVAL TO ROOM. TRANSFEREED CARE OF PT TO MELI BROWN AT THAT TIME.
[2018-05-13] MEDS: LACTATED RINGERS 1,000 ML 125 ML IV (20:25)
[2018-05-13] MEDS: DOCUSATE 100 MG CAPSULE PO (20:25)
--- NOTE | 2018-05-13 22:57 | PC.ADMIT ---
Admission Note: 1934- pt arrived to floor. pt awake and alert. pt groggy but denies pain. numbness to whole had at this point. admission completed. pt uses call malone. pt oriented to room and hospital procedures. discussed operation with pt and family. pt cooperative and compliant. pt ambulates steady gait. calls for help with IV pols. fluids started. meds given. denies need for pain meds at this time. vss. will continue to monitor.
[2018-05-14] MEDS: ACETAMINOPHEN 325 MG TABLET 650 MG PO ×3 (02:03→20:23)
[2018-05-14] MEDS: CEFTRIAXONE 1 GM/50 ML FROZ.PIGGY IV (03:45)
[2018-05-14 03:48] VITALS: BP 108/65; PULSE 63; RESP 16; TEMP 36.4; O2SAT 99
[2018-05-14] MEDS: SODIUM CHLORIDE 0.9% 1,000 ML 125 ML IV (03:51)
--- NOTE | 2018-05-14 04:04 | PC.NURSE ---
manager shift Pt reports no numbness or tingling in left fingers, and no c/o pain. Pain well controlled with PO Tylenol. LR d/c and NS is running at 125 per orders. Contact precautions maintained. Will continue to monitor for needs and safety.
[2018-05-14 05:47] LABS: Hematocrit 39.9 % (36-46); Hemoglobin 13.2 g/dL (12.0-16.0); Mean Corpuscular HGB Conc 33.1 % (30-36); Mean Corpuscular Hemoglobin 29.7 PG (26-34); Mean Corpuscular Volume 89.9 fL (80-100); Platelet Count 233 X10^3/uL (150-400); Red Blood Cell Count 4.44 X10^6/uL (4.0-5.2); Red Cell Distribution Width 12.6 % (11.6-14.8); White Blood Cell Count 5.8 X10^3/uL (4.5-11.0)
[2018-05-14 07:54] VITALS: BP 118/74; PULSE 67; RESP 16; TEMP 36.9; O2SAT 97
--- NOTE | 2018-05-14 08:04 | P.PN_ITS ---
Subjective Date Patient Seen: 05/14/18 Time Patient Seen: 08:01 Interval history: She is doing well. Minimal discomfort. Exam Vital Signs (past 8 hours): - 05/14/18 03:48 05/14/18 07:54 Temperature 97.5 F L 98.4 F Pulse Rate 63 67 Respiratory Rate 16 16 Blood Pressure 108/65 118/74 Pulse Oximetry 99 97 Oxygen Delivery Method Room Air Oxygen Flow Rate 0 Const Orientation: alert and oriented x3 Extrem Other: Dressing clean dry intact Objective Labs Result Diagrams: 05/14/18 04:55 05/13/18 15:00 Labs: Laboratory Results - last 24 hr 05/13/18 05/13/18 05/14/18 15:00 15:00 04:55 WBC 5.4 5.8 RBC 4.96 4.44 Hgb 14.8 13.2 Hct 44.7 39.9 MCV 90.2 89.9 MCH 29.8 29.7 MCHC 33.0 33.1 RDW 12.6 12.6 Plt Count 261 233 Neut % (Auto) 53.3 Lymph % (Auto) 33.3 [place] % (Auto) 7.1 Eos % (Auto) 4.7 H Baso % (Auto) 1.6 Neut # (Auto) 2900 Lymph # (Auto) 1800 [place] # (Auto) 400 Eos # (Auto) 300 Baso # (Auto) 100 ESR 4 Sodium 139 Potassium 4.0 Chloride 102 Carbon Dioxide 28 BUN 9 Creatinine 0.50 L Estimated GFR > 60.0 BUN/Creatinine Ratio 18.0 Glucose 103 H Calcium 9.8 C-Reactive Protein < 0.5 Gram stain shows 4+ Gram-positive cocci Assessment & Plan Post-op Postoperative Procedures Operation Date: 05/13/18 18:00 Actual Procedures Side Surgeon p Left index finger debridement Left Jeffry Mascorro MD Operation Date: 05/14/18 18:00 <No data on this case meets the specified criteria> She has gram-positive cocci on her microscopic exam. I have switched her over to vancomycin and she is on MRSA precautions. Plan is to take down the dressing and examine the wound tomorrow. Possible return to the operating room if needed. Plan on keeping her here on IV antibiotics until we have definitive culture results with sensitivities. Will probably need to discharge home on IV antibiotics as well.
[2018-05-14] MEDS: DOCUSATE 100 MG CAPSULE PO ×2 (08:33→23:37)
[2018-05-14] MEDS: VANCOMYCIN 1,250 MG in SODIUM CHLORIDE 0.9% 250 ML 166.667 ML IV (08:33)
--- NOTE | 2018-05-14 09:34 | PT.IIE ---
Current Diagnoses Gangrene, not elsewhere classified (05/13/18) Unspecified open wound of left hand, initial encounter (05/13/18) Surgery Performed Operation Date: 05/13/18 18:00 <No data on this case meets the specified criteria> Operation Date: 05/13/18 18:00 Actual Procedures p Left index finger debridement(Left) - Jeffry Mascorro MD Physical Therapy Inpatient Evaluation/Re-Eval M1 PT/OT-IP Prior Functional Status Start: 05/14/18 08:48 Freq: NEEDED Status: Active Protocol: Document 05/14/18 09:30 DLM (Rec: 05/14/18 09:32 DLM [email or web address]) Medical Review Prior Functional Status Medical History Reviewed Yes Diet/Fluid Consistency Regular Communication WNL Mobility and Gait Independent without device, community distances, active Activities of Daily Living and IADL's Independent Social History Household Members spouse children Living Arrangements House Additional Social History Comment Her Sister and Mother are in town to help her as needed, she has been attending out-pt OT for hand therapy before this admission in [place] M2 PT-IP Current Condition Start: 05/14/18 08:48 Freq: NEEDED Status: Active Protocol: Document 05/14/18 09:32 DLM (Rec: 05/14/18 09:34 DLM [email or web address]) Physical Therapy Current Condition Current Condition Treatment Diagnosis finger infection s/p I&D Onset Date 05/13/18 Precautions Other Precautions large dressing on left finger, no orders for ROM at this time, pt is right handed M3 PT-IP Subjective Start: 05/14/18 08:48 Freq: NEEDED Status: Active Protocol: Document 05/14/18 09:30 DLM (Rec: 05/14/18 09:32 DLM [email or web address]) Subjective Physical Therapy Visit Type Notes No eval needed at this time Physical Therapy Visit Comments Patient Comments No dizziness, no nausea, feels well when moving around Patient Goals go home Pt has been up ambulating in her room. She demonstrates good balance. She is able to manage the IV pole for mobility in the room. No skilled physical therapy needs identified at this time. Will discharge physical therapy. Please re-order physical therapy if her needs change during this admission.
[2018-05-14 12:02] VITALS: BP 116/72; PULSE 68; RESP 16; TEMP 37.2; O2SAT 97
[2018-05-14] MEDS: CEFAZOLIN 1 GM/50 ML FROZ.PIGGY IV ×2 (14:56→22:25)
[2018-05-14 15:25] VITALS: BP 115/72; PULSE 69; RESP 16; TEMP 37.2; O2SAT 98
--- NOTE | 2018-05-14 17:14 | DI.RAD.S_ITS ---
PROCEDURE: XR CHEST FOR PICC 1V INDICATIONS: line placement TECHNIQUE: One view of the chest was acquired. COMPARISON: None. FINDINGS: Surgical changes and devices: Left PICC tip projects over the superior vena cava.. Lungs and pleura: The lung apices are not fully included on the [id number] of this radiograph. Lungs are otherwise clear. No pleural effusions or pneumothorax. Mediastinum: Mediastinal contours appear normal. Heart size is normal. There is prominence of the pulmonary vasculature. Bones and chest wall: No suspicious bony lesions. Overlying soft tissues appear unremarkable. IMPRESSION: Left PICC tip projects over the superior vena cava. Dictated by: Tramaine Hastings M.D. on 05/14/2018 at 17:42 Approved by: Tramaine Hastings M.D. on 05/14/2018 at 17:43
[2018-05-14 20:15] VITALS: BP 124/74; PULSE 69; RESP 16; TEMP 36.6; O2SAT 98
[2018-05-14 23:20] VITALS: BP 116/68; PULSE 71; RESP 16; TEMP 36.8; O2SAT 97
--- NOTE | 2018-05-14 23:44 | PC.NURSE ---
Addendum entered by Anna Powell R.N. 05/15/18 06:11: Slept most of night. CMS remains intact. Denies pain. Original Note: Patient is alert and oriented. Breath sounds CTA with RA sat of 97%. HRR with rate in 50's. Denies nausea. BT present and is passing flatus but no BM since 05/11; medicated with Colace which she had refused earlier. Denies dysuria, frequency or urgency. Independent with mobility. Dressing to left index finger is CDI. Fingers of left hand are puffy but CMS is intact. Declines to wear SCD's. Denies pain. Fall risk score is low.
[2018-05-15] MEDS: CEFAZOLIN 1 GM/50 ML FROZ.PIGGY IV (06:03)
[2018-05-15] MEDS: SODIUM CHLORIDE 0.9% 250 ML 21 ML IV (06:03)
[2018-05-15] MEDS: SODIUM CHLORIDE 0.9% FLUSH 10 ML IV (06:04)
[2018-05-15 06:11] VITALS: BP 127/75; PULSE 67; RESP 18; TEMP 36.8; O2SAT 98
--- NOTE | 2018-05-15 06:52 | P.PN_ITS ---
Subjective Date Patient Seen: 05/15/18 Time Patient Seen: 06:51 Interval history: She is doing fine. Minimal discomfort. No fever chills Exam Vital Signs (past 8 hours): - 05/14/18 23:20 05/15/18 06:11 Temperature 98.2 F 98.3 F Pulse Rate 71 67 Respiratory Rate 16 18 Blood Pressure 116/68 127/75 Pulse Oximetry 97 98 Oxygen Delivery Method Room Air Oxygen Flow Rate 0 Const Orientation: alert and oriented x3 Extrem Other: Dressing taken down and changed. Soft tissue underneath clean, pink, with capillary refill. No evidence of any necrosis or purulence. Objective Labs Result Diagrams: 05/14/18 04:55 05/13/18 15:00 Labs: Cultures are growing group F Streptococcus from all wound cultures Assessment & Plan Post-op Postoperative Procedures Operation Date: 05/13/18 18:00 <No data on this case meets the specified criteria> Operation Date: 05/13/18 18:00 Actual Procedures Side Surgeon p Left index finger debridement Left Jeffry Mascorro MD Her finger looks good. We have switched her over to Ancef with her group F s trep. Plan is for 3 weeks of IV antibiotics and then change to orals. We are currently working on getting outpatient IV antibiotics set up. Also working on outpatient wound care. Anticipate discharge to home once these are set up today.
[2018-05-15 08:00] VITALS: BP 135/82; PULSE 68; RESP 16; TEMP 36.6; O2SAT 100
[2018-05-15 08:17] LABS: Vancomycin Trough < 5.0 ug/mL (10-20)
--- NOTE | 2018-05-15 10:26 | P.DS_ITS ---
History of Present Illness Date Patient Seen: 05/15/18 Time Patient Seen: 10:21 Chief complaint: INFECTED FINGER LT/INDEX FINGER Narrative: 52-year-old female who sustained a cut to her left index finger on 04/26/2018. This became infected. On 05/13/2018 she came into the emergency room after not improving after seeing a plastic surgeon twice in [place]. Discharge Providers Date of admission: 05/13/18 17:25 Discharge Date: 05/15/18 Primary care physician: Luzma Alonso Consults: 05/13/18 19:52 Consult to Discharge Planning Routine Comment: Consult to Physical Therapy Evaluate & Treat Comment: Physician Instructions: Evaluate and Treat Consult to Respiratory Therapy Evaluate & Treat Comment: Physician Instructions: Evaluate and treat Discharge provider: Jeffry Mascorro MD Summary Discharge Diagnosis: Left index finger deep infection and osteomyelitis Hospital Course: She is brought to the operating room on 05/13/2018 where she underwent irrigation debridement of the finger. Her nail and all distal skin completely degloved off but there was good pink tissue underneath with good capillary refill and was felt that this was salvageable. Initially she was on Rocephin but then had gram-positive cocci on the Gram stain and her antibiotics were changed to vancomycin. Her cultures grew out group F Streptococcus and she was changed to Ancef 1 mg every 8 hr IV. The dressing was taken down on 05/15/2018 and the wound looked good with no sign of any gangrene or recurrent infection. It is felt that she would be stable for discharge. Plan was for 3 weeks of IV antibiotics and then changed orals. Also plan for outpatient wound clinic for management of her soft tissue wound on the finger. Status at Discharge Cognitive/behavioral status at discharge: oriented Functional status at discharge: independent ambulation Overall status at discharge: patient is progressing back to baseline Exam Vital Signs (past 8 hours): - 05/15/18 06:11 05/15/18 08:00 Temperature 98.3 F 97.9 F Pulse Rate 67 68 Respiratory Rate 18 16 Blood Pressure 127/75 135/82 Pulse Oximetry 98 100 Oxygen Delivery Method Room Air Oxygen Flow Rate 0 Const Orientation: alert and oriented x3 Extrem Other: Wound clean dry intact with no sign of recurrent gangrene or infection Objective Labs Result Diagrams: 05/14/18 04:55 05/13/18 15:00 Labs: Laboratory Results - last 24 hr 05/15/18 07:40 Vancomycin Trough < 5.0 L Discharge Plan Discharge Plan Patient Disposition: Home Discharge comment: Follow-up in [address] Mascorro followup Saturday in wound care clinic for dressing changes and wound care 2x/wk Ancef 1g IV q8h x3 wks with outpt infusion Discharge Med Rec/Prescriptions Prescriptions: Discontinued metronidazole 500 mg Tablet 500 mg PO TID RF: 0 sulfamethoxazole-trimethoprim 800-160 mg Tablet 1 tab PO Q12H RF: 0 Provider Discharge Instructions Diet: Diet as Tolerated Skin/Wound/Dressing Care Dressing: keep dressing intact. wound care treatment 2x/wk with outpatient wound care clinic Visit Report/Discharge Packet Instructions: Peripherally Inserted Central Catheter, DI for Incision and Drainage Discharge Data Primary Care Provider: Luzma Alonso Attending Provider: Jeffry Mascorro Admit Date/Time: 05/13/18 17:25
--- NOTE | 2018-05-15 14:43 | PC.NURSE ---
Discharge: Feels ready for d/c home. Will meet [facility] at that time. PIC line intact. Dressing to be changed tomorrow. Pt has follow up appoints scheduled. Denies need of pain medication. Dr. Mascorro changed hand dressing. Pt's mother is here as well. Pt d/c home via auto w/mother.
--- NOTE | 2018-05-15 15:11 | CM.IDA ---
Addendum entered by WOLF Andujar 05/15/18 15:33: Wound care appts made through [facility] [place] upon DC today. Original Note: DCP Assessment Note: Pt is a 52 yo [place] resident, admitted for I+D of finger d/t infection that developed after being cut by a kitchen knife. Payer: [employer]. Pt lives w/spouse and children, indp. and active at baseline. Dr Mascorro alerted this CLINICAL PSYCHOLOGIST LICENSED Saturday that pt would require IV abx upon DC. Yesterday afternoon culture results showed strep, Dr Mascorro decided on IV Ancef 1g x3 weeks. Met w/pt yesterday afternoon approx 1600 to review recommendations, pt agreeable to contacting infusion co. to review out of pocket expense/insurance benefit for home infusion, no agency preference. Contacted [facility] to inquire, faxed face sheet and initial clinical. Pt's infusion benefit: [employer] [place] deductible $5,500, $890 met so far. If deductible met, pt would owe approx $129weekly, if not met, it would cost $670 weekly. Reviewed home infusion benefit w/pt today, pt agreeable. Notified [facility] and faxed Dr Mascorro's completed DC Summary, completed Rx for IV Ancef and PICC insertion note per request. TC placed to Cammy at [facility], also spoke w/ Dung at [facility] today. All agreeable to above plan, pt has been contacted and aware home dose will be approx 1700 w/ Inf. Christina RN. Wound care also needed, will f/u w/ [facility] re: this referral by Dr Mascorro. WOLF Andujar Discharge Planning/Care Management CM Discharge Assessment Start: 05/15/18 15:05 Freq: Status: Active Protocol: Document 05/15/18 15:05 ASHLEY (Rec: 05/15/18 15:11 ASHLEY [email or web address]) Discharge Planning Assessment Assigned Process Cheese Cooker WOLF Garcia DPOA/Assigned Designee Name sister Monahan Contact Information [phone] Advance Directives? Yes History Provided By Patient Prior Living Arrangements House Household Members spouse children Type of transporation used prior to Drives own vehicle admit Independent with ADL's Yes Is patient alert and oriented? Yes Barriers to Discharge No Discharge Plan Home Community Services IV Therapy Transportation Arrangement Family Referrals Initiated Other Review Status In Process
== END 2018-05-15 14:45 | disposition home or self-care (01) | DRG 516 ==
LOC: ED 17:25 → AC 05-14 08:33
PROVIDERS: Admitting Provider Orthopaedic Surgery; Emergency Provider Emergency Medicine; PCP Family Medicine; Visit Provider Orthopaedic Surgery
PROC: 0PBV0ZZ Excision of Left Finger Phalanx, Open Approach (ICD-10-PCS; principal; 2018-05-13 18:00)
DX: M86.142 Other acute osteomyelitis, left hand (principal); I96 Gangrene, not elsewhere classified; S61.311A Laceration without foreign body of left index finger with damage to nail, initial encounter; B95.4 Other streptococcus as the cause of diseases classified elsewhere
CPT/HCPCS: 36415; 36591; 73140; 73220; 80048; 80202; 85025; 85027; 85651; 86140; 87070; 87075; 87077; 87147; 87205; 96365; 96366; 99283; 99284; A9579; J0330; J1642; J2405; J2704; J3010

== ENCOUNTER → 2018-05-13 18:26 | Outpatient (REF) | payer OTHER, SELFPAY | LOC: LAB 18:26 | PROVIDERS: Visit Provider Internal Medicine | DX: I96 Gangrene, not elsewhere classified (principal) | CPT/HCPCS: 87070; 87075; 87077; 87147; 87186; 87205 ==

== ENCOUNTER → 2018-05-19 14:37 | Outpatient (CLI) | payer OTHER, SELFPAY | PROVIDERS: Visit Provider Family Medicine | DX: S61.311A Laceration without foreign body of left index finger with damage to nail, initial encounter (principal); M86.142 Other acute osteomyelitis, left hand; L03.114 Cellulitis of left upper limb | CPT/HCPCS: 11042; 99203; 99212 ==

== ENCOUNTER → 2018-05-26 13:08 | Outpatient (CLI) | payer OTHER, SELFPAY | PROVIDERS: Visit Provider Family Medicine | DX: S61.311A Laceration without foreign body of left index finger with damage to nail, initial encounter (principal); M86.142 Other acute osteomyelitis, left hand; L03.114 Cellulitis of left upper limb | CPT/HCPCS: 97597 ==

== ENCOUNTER → 2018-06-02 10:28 | Outpatient (CLI) | payer OTHER, SELFPAY | PROVIDERS: Visit Provider Family Medicine | DX: S61.311A Laceration without foreign body of left index finger with damage to nail, initial encounter (principal); M86.142 Other acute osteomyelitis, left hand; L03.114 Cellulitis of left upper limb | CPT/HCPCS: 97597 ==

== ENCOUNTER → 2018-06-10 08:58 | Outpatient (CLI) | payer OTHER, SELFPAY | PROVIDERS: Visit Provider Family Medicine | DX: S61.311A Laceration without foreign body of left index finger with damage to nail, initial encounter (principal); M86.142 Other acute osteomyelitis, left hand; L03.114 Cellulitis of left upper limb | CPT/HCPCS: 97597 ==

== ENCOUNTER → 2018-06-17 09:13 | Outpatient (CLI) | payer OTHER, SELFPAY | PROVIDERS: PCP Family Medicine; Visit Provider Family Medicine | DX: Z48.817 Encounter for surgical aftercare following surgery on the skin and subcutaneous tissue (principal) | CPT/HCPCS: 99212; 99213 ==

== ENCOUNTER 2018-07-29 08:30 | Outpatient (RCR) | payer OTHER, SELFPAY ==
--- NOTE | 2018-07-11 12:09 | OT.OP.EVAL ---
Visit Care Team Role Provider Type Luzma Kellyin Primary Care Provider Non-Staff Specialty: Medical Address: [address], [place], [address] Email: Jeffry Mascorro MD Attending Provider Physician Specialty: Orthopedic Surgery Address: [address] [place] [address], [place], [address] Email: [email or web address] Occupational Therapy Initial Evaluation OT Outpatient Adult Evaluation Start: 07/11/18 10:15 Freq: Status: Active Protocol: Document 06/30/18 15:30 AMS (Rec: 07/11/18 10:29 AMS [email or web address]) General Information Visit Start Time 12:40 Visit Stop Time 13:15 Total Visit Minutes 35 Plan of Care Dates 06/30/18-08/25/18 Insurance Information [place] Insurance Treatment Setting Outpatient Care Note Type Initial Evaluation Referring Physician Jeffry Mascorro MD Reason for Referral Laceration of left index finger without foreign body with damage to nail Precautions Recommendations from referring physician: 'I recommend beginning hand therapy to work on desensitizing and range of motion'. Plan: 'Follow-up in 1 month'. Identification Confirmed Yes: photo ID Medical History Laceration to the left index finger occurred on April 26 at [employer]; wound was cared for by patient and friends who reportedly wrapped the finger 'tightly'. Laceration became 'quite painful, insensate and black' and was referred by her PCP to ER at [facility] in [place]. Patient was referred to a plastic surgeon in [place] and received some treatment. Patient ended up going to [facility] ER on May 13; Dr. Jeffry Mascorro was consulted and over saw her treatment. Patient also reported receiving wound care treatment here at [facility]. XR Finger LT Min 2V May 13 findings: mild cortical regularity involving the 2nd digit, which could represent osteomyelitis. Bone scan or MRI could be performed for confirmation... MR Hand LT WO/ W CON May 13 findings: soft tissue ulcer in the distal 2nd digit with a subjacent tract extending to the underlying distal phalanx which demonstrates findings consistent w/ osteomyelitis; diffuse soft tissue edema, swelling, and enhancement of the 2nd digit most prominent distally consistent with cellulitis; no discrete abscess identified; peritendinitis along the flex tendons of the 2nd digit without tenosynovial fluid collection. Therapy Pain Assessment When Pain Assessed Pre-treat Left Finger Intensity 1 Scale Used Numeric (1 - 10) Patient Questionnaires Quick Dash UE Score 18.18 Quick Dash UE Impairment 1 to 19% Impaired (Score 1-19) Quick Dash W&S Score Work only 18.75 Quick Dash Work and Sport Impairment 1 to 19% Impaired (Score 1-19) ADLs Basic ADLs WFL Comments Exclusion of L second digit w/ completion - modified IADLs Basic IADLs WFL Comments Exclusion of L second digit w/ completion - modified Vocational Ability Modified. Please refer to QuickDASH UE Work Module. Score of 18.75. 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 Uzma will present with decreased tenderness to touch of the left index finger, as evidenced by ability to tolerate tapping over a 3 minute period of time without signs of avoidance to touch. 2. 0-80 degrees active flex PIPJ. Road Cutter Goals 1. Uzma will be modified independent with execution of left index finger home exercise program utilizing provided written and visual instructions. 2. Uzma will be present with increased functional abilities of the non-dominant left hand with inclusion of left index finger within the work environment, as evidenced by score of 5.0 or less on the QuickDASH UE Work Module. Assessment/Plan Patient Response Good Rehabilitation Potential Good Impairments Identified Coordination/Dexterity Flexibility Functional Activities Motor Function Weakness Range of Motion Recreational Activities Meaningful Activities Stiffness Swelling Soft Tissue Mobility Additional Impairments Identified Hypersensitivity to touch Treatment Assessment Patient is a 52 year-old right hand dominant female referred to outpatient OT by Jeffry Mascorro MD, secondary to laceration of left index finger without foreign body with damage to the nail with recommendations for hand therapy to work on desensitizing and range of motion of the digit. Reviewed Medical Records available; significant for polyps per patient's verbal report. PLOF: Independent w/ BADLS and IADLS with inclusion of left index digit. Evaluation findings: Right hand dominant female; decreased management of edema, scar tissue, and sensitivity to touch; tenderness/decreased tolerance to touch; exclusion of left index finger with functional grasp patterns/ object manipulation; weakness and decreased active range of motion. Home Exercise Program Initiated desensitization and active range of motion exercises, including tendon gliding exercises. Reviewed with Patient Goals Home Exercise Program Patient Understanding Good Comment 8 weeks Treatment Frequency Once a Week Therapeutic Contents Active Range of Motion Client Education Functional Activities Home Exercise Program Joint Protection Manual Therapy Education Neurodevelopment Treatment Neuromuscular Re-Education Self-Care Stretching/Flexibility Activities Therapeutic Activities Therapeutic Exercises Modalities Sensory Re-education Modalities As Needed As Prescribed Types of Modalities Contrast Bath E-Stim Functional Stimulation (FES) Ice Massage Skin Care T.E.N. Stimulation TENS Placement/Application Additional Types of Modalities Heat/Cold Patient Instruction Home Exercise Program Plan of Care Questions/Concerns
--- NOTE | 2018-07-11 12:51 | OT.OP.TRT ---
Visit Care Team Role Provider Type Luzma Alonso Primary Care Provider Non-Staff Specialty: Medical Address: [address], [place], [address] Email: Jeffry Mascorro MD Attending Provider Physician Specialty: Orthopedic Surgery Address: [address] [place] [address], [place], [address] Email: [email or web address] [email or web address] Treatment Note OT Outpatient Treatment Note - Adult Start: 07/11/18 10:15 Freq: Status: Active Protocol: Document 07/08/18 15:30 AMS (Rec: 07/11/18 12:50 AMS [email or web address]) OT Outpatient Adult Treatment Note Session Time Visit Start Time 12:35 Visit Stop Time 13:05 Total Visit Minutes 30 Visit Information Plan of Care Dates 06/30/18-08/25/18 Insurance Information [facility] Setting Treatment Setting Outpatient Care Visit Type Note Type Treatment Note General Information General Information Patient is a 52 year-old right hand dominant female referred to outpatient OT by Jeffry Mascorro MD, secondary to laceration of left index finger without foreign body with damage to the nail with recommendations for hand therapy to work on desensitizing and range of motion of the digit. Reviewed Medical Records available; significant for polyps per patient's verbal report. - Subjective Identification Type Name Identification Reconciled With Medical Record Observations Able to address all needs within shortened treatment session. I may need to cancel my next appointment. I am having to have part of my intestines removed d/t polyps per Uzma. I think that it is already starting to look better. They don't know if my nail will grow back. Chief Complaint(s) Loss of Motion/Stiffness Loss of Function Mild Degree Patient/Caregiver Compliance with Home Good Exercise Program - Objective Objective Measurements Decreased edema of left 2nd digit; decreased sensitivity to touch reported by patient relative to lateral side of DIPJ. Continued tenderness dorsally and medially to DIP joint. Short Term Goals 1. Uzma will present with decreased tenderness to touch of the left index finger, as evidenced by ability to tolerate tapping over a 3 minute period of time without signs of avoidance to touch. 2. 0-80 degrees active flex PIPJ. Half-Way Goals 1. Uzma will be modified independent with execution of left index finger home exercise program utilizing provided written and visual instructions. 2. Uzma will be present with increased functional abilities of the non-dominant left hand with inclusion of left index finger within the work environment, as evidenced by score of 5.0 or less on the QuickDASH UE Work Module. - Treatment 1 Descriptor Ultrasound. 20% duty cycle. 1. 8 w/cm2 to L index finger to address swelling/edema. x 10 minutes. Skin intact pre- and post-treatment; medial/lateral borders of DIPJ. Exercises 2 Descriptor HEP. Joint blocking and gentle passive range of motion. Increased focus of massage and exposure to touch medially and distal to DIP joint dorsally. Patient denied questions. Complexity Upgraded 1 Descriptor Joint blocking. Active flexion of IP joints of left 2nd digit. 1 x 10 w/ focus at PIP and DIP joints. Initiated gentle passive range of motion . - Assessment Patient Response to Treatment Good Rehab Potential Good Impairments Identified Coordination/Dexterity Flexibility Functional Activities Weakness Range of Motion Recreational Activities Meaningful Activities Stiffness Swelling Soft Tissue Mobility Additional Impairments Identified Sensitivity to touch/ tenderness Assessment of Improvement Patient verbally indicated that 'she can tell a change' from previous week. Decreasing tenderness and increasing tolerance to touch specifically laterally; improving self-management of sensitivity to touch/edema. Positive carry-over of home recommendations. Recommend that therapist continues to address sensitivity to touch, range of motion, and neuro motor re-training w/ increased active incorporation of 2nd digit in day-to-day life. Home Exercise Program Please refer to treatment section of note for specific details. Reviewed with Patient/Caregiver Goals Progress Being Made Home Exercise Program - Plan Therapy Recommendations Continue with Current Program Advance per Rehabilitation Protocol
--- NOTE | 2018-07-16 14:41 | OT.OP.TRT ---
Visit Care Team Role Provider Type Luzma Alonso Primary Care Provider Non-Staff Specialty: Medical Address: [address], [place], [address] Email: Jeffry Mascorro MD Attending Provider Physician Specialty: Orthopedic Surgery Address: [address] [place] [address], [place], [address] Email: [email or web address] Occupational [email or web address] Note OT Outpatient Treatment Note - Adult Start: 07/11/18 10:15 Freq: Status: Active Protocol: Document 07/16/18 14:32 AMS (Rec: 07/16/18 14:41 AMS [email or web address]) OT Outpatient Adult Treatment Note Session Time Visit Start Time 07:30 Visit Stop Time 08:10 Total Visit Minutes 40 Visit Information Plan of Care Dates 06/30/18-08/25/18 Insurance Information [facility] Setting Treatment Setting Outpatient Care Visit Type Note Type Treatment Note General Information General Information Patient is a 52 year-old right hand dominant female referred to outpatient OT by Jeffry Mascorro MD, secondary to laceration of left index finger without foreign body with damage to the nail with recommendations for hand therapy to work on desensitizing and range of motion of the digit. Reviewed Medical Records available; significant for polyps per patient's verbal report. - Subjective Identification Type Name Identification Reconciled With Medical Record Observations I have an appointment with the doctor right after this per Uzma. Chief Complaint(s) Loss of Motion/Stiffness Loss of Function Mild Degree Patient/Caregiver Compliance with Home Good Exercise Program - Objective Objective Measurements Decreased edema of left 2nd digit; decreased sensitivity to touch reported by patient relative to lateral side of DIPJ. Continued tenderness dorsally and medially to DIP joint. Short Term Goals 1. Uzma will present with decreased tenderness to touch of the left index finger, as evidenced by ability to tolerate tapping over a 3 minute period of time without signs of avoidance to touch. 2. 0-80 degrees active flex PIPJ. Fdc Goals 1. Uzma will be modified independent with execution of left index finger home exercise program utilizing provided written and visual instructions. 2. Uzma will be present with increased functional abilities of the non-dominant left hand with inclusion of left index finger within the work environment, as evidenced by score of 5.0 or less on the QuickDASH UE Work Module. - Treatment 1 Descriptor Ultrasound. 20% duty cycle. 1. 8 w/cm2 to L index finger to address swelling/edema. x 10 minutes. Skin intact pre- and post-treatment; medial/lateral borders of DIPJ. Exercises 4 Descriptor Manual/scar tissue massage 3 Descriptor Passive range of motion Hook grasp/TT grasp - tendon gliding 2 Descriptor HEP/Education. Provided handout re: hand edema and addressing tenderness/ sensitivity to touch to site of injury. Handout also provided guidelines re: friction massage. Patient denied questions. Complexity Upgraded 1 Descriptor Joint blocking. Active flexion of IP joints of left 2nd digit. 1 x 10 w/ focus at PIP and DIP joints. - Assessment Patient Response to Treatment Good Rehab Potential Good Impairments Identified Coordination/Dexterity Flexibility Functional Activities Weakness Range of Motion Recreational Activities Meaningful Activities Stiffness Swelling Soft Tissue Mobility Assessment of Improvement Patient verbalized concerns re : circulation; recommended follow-up w/ physician given appt following outpatient OT session on this treatment date . Decreasing stiffness of digit w/ tendon gliding; increased focus required to actively incorporate digit into every day life d/t learned non use. Sensitivity to touch pad/tip of digit reported by patient. Continued need to address scar tissue. Recommend that therapist continues to address sensitivity to touch, range of motion, and neuro motor re- training w/ increased active incorporation of 2nd digit in day-to-day life. Home Exercise Program Please refer to treatment section of note for specific details. Reviewed with Patient/Caregiver Goals Progress Being Made Home Exercise Program - Plan Therapy Recommendations Continue with Current Program Advance per Rehabilitation Protocol
--- NOTE | 2018-07-23 08:31 | OT.OP.TRT ---
Visit Care Team Role Provider Type Luzma Alonso Primary Care Provider Non-Staff Specialty: Medical Address: [address], [place], [address] Email: Jeffry Mascorro MD Attending Provider Physician Specialty: Orthopedic Surgery Address: [address] [place] [address], [place], [address] Email: [email or web address] Occupational Therapy Treatment Note OT Outpatient Treatment Note - Adult Start: 07/11/18 10:15 Freq: Status: Active Protocol: Document 07/23/18 08:25 AMS (Rec: 07/23/18 08:31 AMS [email or web address]) OT Outpatient Adult Treatment Note Session Time Visit Start Time 07:30 Visit Stop Time 08:10 Total Visit Minutes 40 Visit Information Plan of Care Dates 06/30/18-08/25/18 Insurance Information [facility] Setting Treatment Setting Outpatient Care Visit Type Note Type Treatment Note General Information General Information Patient is a 52 year-old right hand dominant female referred to outpatient OT by Jeffry Mascorro MD, secondary to laceration of left index finger without foreign body with damage to the nail with recommendations for hand therapy to work on desensitizing and range of motion of the digit. Reviewed Medical Records available; significant for polyps per patient's verbal report. - Subjective Identification Type Name Identification Reconciled With Medical Record Observations I was working on our [employer] without gloves and it got me per Uzma. He let me go per Uzma in re: Dr. Mascorro. Chief Complaint(s) Loss of Motion/Stiffness Loss of Function Mild Degree Patient/Caregiver Compliance with Home Good Exercise Program - Objective Objective Measurements Decreased edema of left 2nd digit. Minor cuts to 2nd digit x 2; distal 2nd digit medial/ dorsal surface. Continued reported tenderness. Short Term Goals 1. Uzma will present with decreased tenderness to touch of the left index finger, as evidenced by ability to tolerate tapping over a 3 minute period of time without signs of avoidance to touch. 2. 0-80 degrees active flex PIPJ. Motor Hotel Manager Goals 1. Uzma will be modified independent with execution of left index finger home exercise program utilizing provided written and visual instructions. 2. Uzma will be present with increased functional abilities of the non-dominant left hand with inclusion of left index finger within the work environment, as evidenced by score of 5.0 or less on the QuickDASH UE Work Module. - Treatment 1 Descriptor Ultrasound. 50% duty cycle. 1. 5 w/cm2 to L index finger. x 12 minutes. Skin intact pre- and post-treatment; medial/ lateral borders of DIPJ. Exercises 4 Descriptor Manual/scar tissue massage 3 Descriptor Passive range of motion Hook grasp/TT grasp - tendon gliding 2 Descriptor HEP/Education. No changes to HEP at this time. Patient denied questions. 1 Descriptor Joint blocking. Active flexion of IP joints of left 2nd digit. 1 x 10 w/ focus at PIP and DIP joints. - Assessment Patient Response to Treatment Good Rehab Potential Good Impairments Identified Coordination/Dexterity Flexibility Functional Activities Weakness Range of Motion Recreational Activities Meaningful Activities Stiffness Swelling Soft Tissue Mobility Assessment of Improvement Minor cuts to distal 2nd digit as a result of gardening without gloves; did not complete paraffin given new cuts. Focus of treatment session on manual therapy; scar tissue management. Sensitivity to touch pad/tip of digit reported by patient. Continued need to address scar tissue. Recommend that therapist continues to address sensitivity to touch, range of motion, and neuro motor re- training w/ increased active incorporation of 2nd digit in day-to-day life. Home Exercise Program Please refer to treatment section of note for specific details. Reviewed with Patient/Caregiver Goals Progress Being Made Home Exercise Program - Plan Therapy Recommendations Continue with Current Program Advance per Rehabilitation Protocol
--- NOTE | 2018-07-29 11:57 | OT.OP.DC ---
Visit Care Team Role Provider Type Luzma Alonso Primary Care Provider Non-Staff Address: [address], [place], [address] Email: Jeffry Mascorro MD Attending Provider Physician Address: [address] [place] [address], [place], [address] Email: [email or web address] Outpatient OT Outpatient Adult Evaluation Start: 07/11/18 10:15 Freq: Status: Active Protocol: Document 06/30/18 15:30 AMS (Rec: 07/11/18 10:29 AMS [email or web address]) General Information Session Time Visit Start Time 12:40 Visit Stop Time 13:15 Total Visit Minutes 35 Visit Information Plan of Care Dates 06/30/18-08/25/18 Insurance Information [place] [facility] Setting Treatment Setting Outpatient Care Visit Type Note Type Initial Evaluation Referral Referring Physician Jeffry Mascorro MD Reason for Referral Laceration of left index finger without foreign body with damage to nail Precautions Recommendations from referring physician: 'I recommend beginning hand therapy to work on desensitizing and range of motion'. Plan: 'Follow-up in 1 month'. Identification Identification Confirmed Yes: photo ID Medical Information Medical History Laceration to the left index finger occurred on April 26 at [employer]; wound was cared for by patient and friends who reportedly wrapped the finger 'tightly'. Laceration became 'quite painful, insensate and black' and was referred by her PCP to ER at [facility] in [place]. Patient was referred to a plastic surgeon in [place] and received some treatment. Patient ended up going to [facility] ER on May 13; Dr. Jeffry Mascorro was consulted and over saw her treatment. Patient also reported receiving wound care treatment here at [facility]. XR Finger LT Min 2V May 13 findings: mild cortical regularity involving the 2nd digit, which could represent osteomyelitis. Bone scan or MRI could be performed for confirmation... MR Hand LT WO/ W CON May 13 findings: soft tissue ulcer in the distal 2nd digit with a subjacent tract extending to the underlying distal phalanx which demonstrates findings consistent w/ osteomyelitis; diffuse soft tissue edema, swelling, and enhancement of the 2nd digit most prominent distally consistent with cellulitis; no discrete abscess identified; peritendinitis along the flex tendons of the 2nd digit without tenosynovial fluid collection. Therapy Pain Assessment Pain When Pain Assessed Pre-treat Location Left Finger Intensity 1 Scale Used Numeric (1 - 10) Patient Questionnaires Quick Dash- Upper Extremity Quick Dash UE Score 18.18 Quick Dash UE Impairment 1 to 19% Impaired (Score 1-19) Quick Dash- Work and Sports Modules Quick Dash W&S Score Work only 18.75 Quick Dash Work and Sport Impairment 1 to 19% Impaired (Score 1-19) ADLs Overall Ability Basic ADLs WFL Comments Exclusion of L second digit w/ completion - modified IADLs Overall Function Basic IADLs WFL Comments Exclusion of L second digit w/ completion - modified Vocation Vocational Ability Modified. Please refer to QuickDASH UE Work Module. Score of 18.75. 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 Uzma will present with decreased tenderness to touch of the left index finger, as evidenced by ability to tolerate tapping over a 3 minute period of time without signs of avoidance to touch. 2. 0-80 degrees active flex PIPJ. Skilled Nursing Goals [employer] Finishing Hand Goals 1. Uzma will be modified independent with execution of left index finger home exercise program utilizing provided written and visual instructions. 2. Uzma will be present with increased functional abilities of the non-dominant left hand with inclusion of left index finger within the work environment, as evidenced by score of 5.0 or less on the QuickDASH UE Work Module. Assessment/Plan Assessment Patient Response Good Rehabilitation Potential Good Impairments Identified Coordination/Dexterity Flexibility Functional Activities Motor Function Weakness Range of Motion Recreational Activities Meaningful Activities Stiffness Swelling Soft Tissue Mobility Additional Impairments Identified Hypersensitivity to touch Treatment Assessment Patient is a 52 year-old right hand dominant female referred to outpatient OT by Jeffry Mascorro MD, secondary to laceration of left index finger without foreign body with damage to the nail with recommendations for hand therapy to work on desensitizing and range of motion of the digit. Reviewed Medical Records available; significant for polyps per patient's verbal report. PLOF: Independent w/ BADLS and IADLS with inclusion of left index digit. Evaluation findings: Right hand dominant female; decreased management of edema, scar tissue, and sensitivity to touch; tenderness/decreased tolerance to touch; exclusion of left index finger with functional grasp patterns/ object manipulation; weakness and decreased active range of motion. Home Exercise Program Initiated desensitization and active range of motion exercises, including tendon gliding exercises. Reviewed with Patient Goals Home Exercise Program Patient Understanding Good Plan Comment 8 weeks Treatment Frequency Once a Week Therapeutic Contents Active Range of Motion Client Education Functional Activities Home Exercise Program Joint Protection Manual Therapy Education Neurodevelopment Treatment Neuromuscular Re-Education Self-Care Stretching/Flexibility Activities Therapeutic Activities Therapeutic Exercises Modalities Sensory Re-education Modalities As Needed As Prescribed Types of Modalities Contrast Bath E-Stim Functional Stimulation (FES) Ice Massage Skin Care T.E.N. Stimulation TENS Placement/Application Additional Types of Modalities Heat/Cold Patient Instruction Home Exercise Program Plan of Care Questions/Concerns Sensory Assessment Sensory Profile2 Functional Wrist/Hand Scan Hand Side OT Outpatient Treatment Note - Adult Start: 07/11/18 10:15 Freq: Status: Active Protocol: Document 07/29/18 11:57 AMS (Rec: 07/29/18 11:57 AMS [email or web address]) OT Outpatient Adult Treatment Note Session Time Visit Start Time 08:35 Visit Stop Time 09:15 Total Visit Minutes 40 Visit Information Plan of Care Dates 06/30/18-08/25/18 Insurance Information [facility] Setting Treatment Setting Outpatient Care Visit Type Note Type Discharge Summary General Information General Information Patient is a 52 year-old right hand dominant female referred to outpatient OT by Jeffry Mascorro MD, secondary to laceration of left index finger without foreign body with damage to the nail with recommendations for hand therapy to work on desensitizing and range of motion of the digit. Reviewed Medical Records available; significant for polyps per patient's verbal report. - Subjective Identification Type Name Identification Reconciled With Medical Record Observations I am ready for this to be the last appointment given everything else that is going on per Uzma. I am going to have an [id number] consult with the specialist at [facility] to discuss the meaning of pre-cancerous. Chief Complaint(s) Loss of Motion/Stiffness Patient/Caregiver Compliance with Home Good Exercise Program - Objective Objective Measurements L 2nd digit AROM: 0-93 degrees active MCPJ flexion; 0 -90 degrees active PIPJ flexion; 0-53 degrees active DIPJ flexion. Mild distal edema of digit. Pain Assessment Grid completed on this date; 2/10 indicated on the pain scale relative to L distal 2nd digit. 15.91 score versus initial 18.18 score obtained on QuickDASH UE Outcome Measure. 12.5 score versus 18.75 score obtained on QuickDASH UE Work Module Outcome Measure. Short Term Goals GOALS MET 0-80 degrees active flex PIPJ. *MET 07/29/18= 0-90 degrees GOALS DISCHARGED 1. Uzma will present with decreased tenderness to touch of the left index finger, as evidenced by ability to tolerate tapping over a 3 minute period of time without signs of avoidance to touch. = 50% met Skilled Nursing Goals GOALS MET Mod independent w/ execution of L index finger HEP. *MET 07/29/18 GOALS DISCHARGED d/t transition to HEP 1. Uzma will be present with increased functional abilities of the non-dominant left hand with inclusion of left index finger within the work environment, as evidenced by score of 5.0 or less on the QuickDASH UE Work Module. 07/29/18= 50% met; obtained a score of 12.5. - Treatment 1 Descriptor Ultrasound. 20% duty cycle. 2. 0 w/cm2 to distal L 2nd digit. x 8 minutes. Skin intact pre- and post-treatment. Exercises 4 Descriptor Manual/scar tissue massage 2 Descriptor HEP/Education. Provision of blue firm theraputty for home use; instructed in finger pull w/ theraputty on TT, hook grasp w/ theraputty, gross grasp w/ theraputty, and digit extension w/ theraputty. Instructed in storage and care of theraputty. Reviewed scar tissue mobilization; edema management; and discussed use of heat prior to 2nd digit ROM exercises. Reviewed tendon gliding exercises and hypersensitivity to touch activities w/ tapping. Uzma denied questions. Complexity Upgraded - Assessment Patient Response to Treatment Good Rehab Potential Good Impairments Identified Coordination/Dexterity Flexibility Functional Activities Weakness Range of Motion Recreational Activities Meaningful Activities Stiffness Swelling Soft Tissue Mobility Assessment of Overall Progress Improving Assessment of Improvement Uzma has made progress since time of initial evaluation; this is evidenced by improved active range of motion of L 2nd digit. Uzma improved from 0-80 degrees to 0-93 degrees active flexion of L 2nd digit MCPJ; improved from 0-63 degrees to 0-90 degrees active flexion of L 2nd digit PIPJ; and improved from 0-35 degrees to 0-53 degrees active flexion of L 2nd digit DIPJ. Uzma is also demonstrating improving functional incorporation of L 2nd digit w / gross grasp in day-to-day based on report (I am using this finger now that I am not worried about getting an infection). Uzma denied questions re: HEP and denied continued need for outpatient OT. Thus, recommend d/c from outpatient OT to HEP. Home Exercise Program Please refer to treatment section of note for specific details. Reviewed with Patient/Caregiver Goals Progress Being Made Home Exercise Program - Plan Therapy Recommendations Discharge to Home Exercise Program
== END 2018-07-30 13:58 | disposition home or self-care (01) ==
LOC: OT 08:30
PROVIDERS: PCP Family Medicine; Visit Provider Orthopaedic Surgery
DX: S61.311D Laceration without foreign body of left index finger with damage to nail, subsequent encounter (principal)
CPT/HCPCS: 97035; 97110; 97140; 97165